=== PATIENT | male | born 1990 ===

== ENCOUNTER 2019-11-29 07:59 | Emergency (ER) | payer OTHER ==
[~2019-11-29] VITALS: Ht 177.8 cm; Wt 90.7 kg
[2019-11-29] MEDS ORDERED: FOCALIN XR20 MG PO (08:07)
== END 2019-11-29 11:06 | disposition home or self-care (01) ==
LOC: ER 07:59
DX: L02.31 Cutaneous abscess of buttock (principal)